=== PATIENT | male | born 1950 | race Caucasian/White ===

== ENCOUNTER → 2016-10-10 | Outpatient (CLI) | payer MEDICARE, OTHER ==
[~2016-10-10] MED LIST: ASPI-586 PO; CHOL200014 PO; CIPR500T4 PO; OMG1KC PO; TADA20TA PO; TEST100V3 IM
[2016-10-10 09:54] LABS: ALBUMIN 3.7 g/dL (3.4-5.0); ANION GAP 14.5 MEQ/L (3-15); CALCULATED IONIZED CALCIUM 4.1 mg/dL (3.8-4.6); TOTAL PROTEIN 7.2 g/dL (6.4-8.5)
== END ==
LOC: LAB 10-08 11:16
PROVIDERS: ATTEND Family Medicine
DX: Z00.01 Encounter for general adult medical examination with abnormal findings (principal); Z12.5 Encounter for screening for malignant neoplasm of prostate
CPT/HCPCS: 36415; 80053; 80061; 86141; G0103; 84153

== ENCOUNTER → 2016-12-15 | Outpatient (CLI) | payer MEDICARE, OTHER | LOC: LAB 07:37 | PROVIDERS: ATTEND Urology | DX: N40.0 Benign prostatic hyperplasia without lower urinary tract symptoms (principal) | CPT/HCPCS: 36415; 84153; 84403 ==

== ENCOUNTER → 2017-01-16 | Outpatient (CLI) | payer MEDICARE, OTHER ==
[2017-01-16 09:14] LABS: ANION GAP 13.6 MEQ/L (3-15)
== END ==
LOC: LAB 08:30
PROVIDERS: ATTEND Family Medicine
DX: N40.1 Benign prostatic hyperplasia with lower urinary tract symptoms (principal); R73.09 Other abnormal glucose
CPT/HCPCS: 36415; 80048; 83036